=== PATIENT | male | born 1935 | race Caucasian/White ===

== ENCOUNTER 2016-10-31 03:15 | Emergency (ER) | payer OTHER, BC ==
[~2016-10-31] VITALS: Ht 177.8 cm; Wt 89.8 kg
[~2016-10-31 03:15] MED LIST: ACETAMINOPHEN-1 EAC1 PO; ACETAMINOPHEN325 M1 PO; ACTIGALL300 MG PO; ACTOS15 MG PO; AMBIEN5 MG PO; ASCORBIC ACID500 M3 PO; AVODART0.5 MG PO; BENADRYL25 MG PO; CARDIZEM CD,CA120 MG PO; CELECOXIB200 MG PO; CLEOCIN150 MG PO; COZAAR100 MG PO; COZAAR25 MG PO; CYANOCOBALAM1000 MCG PO; DIAMOX250 MG PO; DILTIAZEM 24HR120 MG PO; DORZOLAMIDE-TIM10 ML LEFT EYE; DUTASTERIDE0.5 MG PO; FISH OIL 1,0001 EAC7 PO; FLOMAX0.4 MG PO; FOLIC ACID1 MG PO; GABAPENTIN100 MG PO; GLUCOPHAGE500 MG PO; GLUCOSAMINE S1000 M3 PO; GLUCOSAMINE1000 MG PO; GLYBURIDE1.25 MG PO; HUMALOG100 UNIT/2 SC; HYDROCHLOROTHIA25 MG PO; IRON160 M1 PO; IRON18 MG PO; ISOPTO ATROPINE15 ML LEFT EYE; JANUVIA25 M1 PO; LACTULOSE10 GM/151 PO; LASIX40 MG PO; LEVEMIR FL100 UNIT/1 SC; LEVEMIR100 UNIT/2 SC; LEVO-T137 MCG PO; LEVOTHYROXINE175 MCG PO; LEVOXYL200 MCG PO; LOPRESSOR100 M1 PO; LOPRESSOR50 MG PO; LORAZEPAM0.5 MG PO; LUMIGAN 0.50 DROP/22 BOTH EYES; LUMIGAN 0.50 DROP/22 LEFT EYE; MACROBID100 MG PO; METAMUCIL PACKE1 PKT PO; METOPROLOL SUC100 MG PO; MIRALAX17 GM PO; MIRALAX255 GM PO; NEURONTIN100 MG PO; NITROSTAT0.4 MG SL; NOVOLOG PE100 UNITS/ SC; OMEGA III EPA1000 MG PO; OMEPRAZOLE20 M2 PO; OMEPRAZOLE20 MG PO; OMEPRAZOLE40 M1 PO; PHENAZOPYRIDIN200 MG PO; PRAVACHOL80 MG PO; PRAVASTATIN SOD80 MG PO; PROSCAR5 MG PO; SENNA-TIME S T1 EACH PO; ST. JOSEPH ASPI81 MG PO; SULFASALAZINE500 MG PO; SYNTHROID100 MCG PO; TAMSULOSIN HCL0.4 MG PO; TAZTIA XT120 M1 PO; THERAGRAN1 TABLET PO; TOPROL XL25 MG PO; TOUJEO SOL300 UNIT/1 SC; TRAMADOL HCL50 MG PO; TYLENOL ARTHRI650 MG PO; TYLENOL EXTRA500 MG PO; TYLENOL REGULA325 MG PO; ULTRAM50 MG PO; URSODIOL300 MG PO; VITAMIN D31000 UNIT PO; XARELTO20 MG PO; ZOLPIDEM TARTRAT5 MG PO
[2016-10-31 04:28] LABS: EOSINOPHIL (%) 2.5 % (0-5); EOSINOPHIL COUNT 0.2 K/uL (0-0.3); HEMATOCRIT 37.9 % (38.0-50.0); IMMATURE GRANULOCYTE (%) 1.1 % (0.0-0.7); IMMATURE GRANULOCYTE COUNT 0.1 K/uL; INSTRUMENT ABS NEUTROPHIL CT 6.9 K/uL; MCH 29.7 PG (29.0-34.0); MCV 87.1 FL (86-99); MEAN PLAT.VOLUME 10.1 uM^3 (9.0-12.4); MONOCYTE (%) 7.6 % (3-12); MONOCYTE COUNT 0.7 K/uL (0-0.8); NEUTROPHIL (%) 77.5 % (45-76); NEUTROPHIL COUNT 6.9 K/uL (1.8-6.4); PLATELET COUNT 139 K/uL (156-360); RBC DIS.WIDTH-CV 12.7 % (11.8-14.6); RBC DIS.WIDTH-SD 40.4 % (39-53); RED BLOOD COUNT 4.35 M/uL (4.00-5.50); WHITE BLOOD COUNT 8.9 K/uL (4.1-10.2)
[2016-10-31 04:44] LABS: CHLORIDE 102 mEq/L (99-109); POTASSIUM 3.5 mEq/L (3.7-5.4); SODIUM 139 mEq/L (136-147)
[2016-10-31 04:46] LABS: GLUCOSE 140 mg/dL (70-99)
[2016-10-31 04:47] LABS: ANION GAP 10 MEQ/L (2-14)
[2016-10-31 04:49] LABS: GFR ESTIMATE (CALCULATED) 52 mL/min/
[2016-10-31 04:50] LABS: UREA NITROGEN (BUN) 31 mg/dL (9-23)
[2016-10-31 04:51] LABS: ADD MIUA? NO; BILIRUBIN NEGATIVE; BLOOD NEGATIVE; COLOR STRAW ((YELLOW)); GLUCOSE (STRIP) NEGATIVE; KETONES NEGATIVE; LEUKOCYTES NEGATIVE; NITRITE NEGATIVE; PROTEIN (STRIP) NEGATIVE; SPECIFIC GRAVITY 1.008 (1.000-1.030); UCUL ADDED? NO; UROBILINOGEN 0.2 MG/DL (0.2-1.0)
[2016-10-31 04:54] LABS: TROP-I INTERPRETATION NEGATIVE; TROPONIN-I < 0.01 ng/mL (0.0-0.30)
[2016-10-31 04:56] LABS: INTER. NORMALIZED RATIO 1.2; PROTHROMBIN TIME 12.2 (9.2-11.2); PTT 27.1 (25-32)
[2016-10-31 05:19] VITALS: BP 103/64
[2016-10-31 05:34] LABS: HDL CHOLESTEROL 47 MG/DL (Desirable>=40); LDL CHOLESTEROL 103 mg/dL (Desirable<100); NON-HDL CHOLESTEROL 120 mg/dL (Desirable<160); TOTAL CHOLESTEROL 167 mg/dL (Desirable<200); TRIGLYCERIDES 85 MG/DL (Normal: <150)
[2016-10-31 06:42] LABS: Estimated Average Glucose 206 mg/dL (70-123); HEMOGLOBIN A1c (GLYCOHEMOGLOB) 8.8 % HGB (Below 5.7)
== END 2016-10-31 06:24 | disposition home or self-care (01) ==
LOC: EME → EDBD 03:15 → EME 06:24
PROVIDERS: Emergency Medicine
DX: T14.8 Other injury of unspecified body region (principal); N28.9 Disorder of kidney and ureter, unspecified; M54.2 Cervicalgia; W19.XXXA Unspecified fall, initial encounter; E11.9 Type 2 diabetes mellitus without complications; I10 Essential (primary) hypertension; K21.9 Gastro-esophageal reflux disease without esophagitis; I25.10 Atherosclerotic heart disease of native coronary artery without angina pectoris; Z95.1 Presence of aortocoronary bypass graft; G89.29 Other chronic pain; I73.9 Peripheral vascular disease, unspecified; Z79.84 Long term (current) use of oral hypoglycemic drugs; Z79.4 Long term (current) use of insulin; Z87.891 Personal history of nicotine dependence
CPT/HCPCS: 70450; 71010; 72125; 80048; 80061; 81003; 83036; 84484; 85025; 85610; 85730; 93005; 99281; 99284

== ENCOUNTER 2016-11-05 01:27 | Emergency (ER) | payer OTHER, BC ==
[~2016-11-05] VITALS: Ht 180.3 cm; Wt 94.5 kg
[2016-11-05 02:18] LABS: HEMATOCRIT 34.1 % (38.0-50.0); MCH 29.9 PG (29.0-34.0); MCHC 34.6 G/DL (30.0-36.0); MCV 86.5 FL (86-99); MEAN PLAT.VOLUME 10.8 uM^3 (9.0-12.4); PLATELET COUNT 153 K/uL (156-360); RBC DIS.WIDTH-CV 12.5 % (11.8-14.6); RBC DIS.WIDTH-SD 39.7 % (39-53); RED BLOOD COUNT 3.94 M/uL (4.00-5.50); WHITE BLOOD COUNT 5.7 K/uL (4.1-10.2)
[2016-11-05 02:27] LABS: CHLORIDE 103 mEq/L (99-109); POTASSIUM 4.2 mEq/L (3.7-5.4); SODIUM 136 mEq/L (136-147)
[2016-11-05 02:29] LABS: GLUCOSE 314 mg/dL (70-99)
[2016-11-05 02:31] LABS: ANION GAP 9 MEQ/L (2-14)
[2016-11-05 02:33] LABS: GFR ESTIMATE (CALCULATED) > 59 mL/min/
[2016-11-05 02:34] LABS: TROP-I INTERPRETATION NEGATIVE; TROPONIN-I < 0.01 ng/mL (0.0-0.30); UREA NITROGEN (BUN) 22 mg/dL (9-23)
[2016-11-05] MEDS ORDERED: NAPROSYN500 MG PO (03:42)
[2016-11-05 05:16] VITALS: BP 121/73
== END 2016-11-05 05:17 | disposition home or self-care (01) ==
LOC: EME → EDBD 01:27 → EME 01:27
PROVIDERS: Emergency Medicine
DX: M54.2 Cervicalgia (principal); M79.601 Pain in right arm; M25.511 Pain in right shoulder; G89.29 Other chronic pain; I10 Essential (primary) hypertension; K21.9 Gastro-esophageal reflux disease without esophagitis; I73.9 Peripheral vascular disease, unspecified; I25.10 Atherosclerotic heart disease of native coronary artery without angina pectoris; Z95.1 Presence of aortocoronary bypass graft; Z79.4 Long term (current) use of insulin; Z79.01 Long term (current) use of anticoagulants; Z87.891 Personal history of nicotine dependence; E11.65 Type 2 diabetes mellitus with hyperglycemia
CPT/HCPCS: 73030; 80048; 84484; 85027; 93005; 99281; 99284

== ENCOUNTER 2016-11-27 12:07 | Emergency (ER) | payer OTHER, BC ==
[~2016-11-27] VITALS: Ht 175.3 cm; Wt 90.8 kg
[~2016-11-27 12:07] MED LIST changes: +NAPROSYN500 MG PO
[2016-11-27 14:25] LABS: EOSINOPHIL (%) 0.9 % (0-5); EOSINOPHIL COUNT 0.1 K/uL (0-0.3); HEMATOCRIT 37.6 % (38.0-50.0); IMMATURE GRANULOCYTE (%) 0.5 % (0.0-0.7); IMMATURE GRANULOCYTE COUNT 0.1 K/uL; INSTRUMENT ABS NEUTROPHIL CT 11.4 K/uL; LYMPHOCYTE COUNT 0.6 K/uL (1.0-2.8); MCH 30.3 PG (29.0-34.0); MCHC 34.6 G/DL (30.0-36.0); MCV 87.6 FL (86-99); MEAN PLAT.VOLUME 9.8 uM^3 (9.0-12.4); MONOCYTE (%) 5.6 % (3-12); MONOCYTE COUNT 0.7 K/uL (0-0.8); NEUTROPHIL (%) 88.3 % (45-76); NEUTROPHIL COUNT 11.4 K/uL (1.8-6.4); PLATELET COUNT 152 K/uL (156-360); RBC DIS.WIDTH-CV 13.2 % (11.8-14.6); RBC DIS.WIDTH-SD 42.5 % (39-53); RED BLOOD COUNT 4.29 M/uL (4.00-5.50)
[2016-11-27 14:26] LABS: WHITE BLOOD COUNT 12.9 K/uL (4.1-10.2)
[2016-11-27 14:33] LABS: CHLORIDE 101 mEq/L (99-109); POTASSIUM 3.9 mEq/L (3.7-5.4); SODIUM 139 mEq/L (136-147)
[2016-11-27 14:35] LABS: GLUCOSE 236 mg/dL (70-99)
[2016-11-27 14:36] LABS: ANION GAP 9 MEQ/L (2-14)
[2016-11-27 14:37] LABS: TOTAL BILIRUBIN 0.7 mg/dL (0.0-1.0)
[2016-11-27 14:38] LABS: ALKALINE PHOSPHATASE 74 IU/L (3-129)
[2016-11-27 14:39] LABS: GFR ESTIMATE (CALCULATED) > 59 mL/min/
[2016-11-27 14:40] LABS: UREA NITROGEN (BUN) 19 mg/dL (9-23)
[2016-11-27 14:42] LABS: LIPASE 40 U/L (1.0-51.0)
[2016-11-27] MEDS ORDERED: CIPRO500 MG PO (16:47)
[2016-11-27] MEDS ORDERED: FLAGYL500 MG PO (16:47)
[2016-11-27 17:35] VITALS: BP 133/108
== END 2016-11-27 17:45 | disposition home or self-care (01) ==
LOC: EME 12:07
PROVIDERS: Emergency Medicine
DX: K52.9 Noninfective gastroenteritis and colitis, unspecified (principal); K92.1 Melena; I10 Essential (primary) hypertension; I48.91 Unspecified atrial fibrillation; I25.10 Atherosclerotic heart disease of native coronary artery without angina pectoris; E11.9 Type 2 diabetes mellitus without complications; K21.9 Gastro-esophageal reflux disease without esophagitis; Z95.1 Presence of aortocoronary bypass graft; Z79.4 Long term (current) use of insulin; Z79.01 Long term (current) use of anticoagulants; Z87.891 Personal history of nicotine dependence
CPT/HCPCS: 74177; 80053; 83690; 85025; 99281; 99285; J7030

== ENCOUNTER 2017-02-27 16:46 | Emergency (ER) | payer OTHER, BC ==
[~2017-02-27] VITALS: Ht 175.3 cm; Wt 90.2 kg
[~2017-02-27 16:46] MED LIST changes: +CIPRO500 MG PO; +FLAGYL500 MG PO
[2017-02-27 18:01] LABS: ADD MIUA? NO; BILIRUBIN NEGATIVE; BLOOD NEGATIVE; COLOR STRAW ((YELLOW)); GLUCOSE (STRIP) NEGATIVE; KETONES NEGATIVE; LEUKOCYTES NEGATIVE; NITRITE NEGATIVE; PROTEIN (STRIP) NEGATIVE; SPECIFIC GRAVITY 1.006 (1.000-1.030); UCUL ADDED? NO; UROBILINOGEN 0.2 MG/DL (0.2-1.0)
[2017-02-27] MEDS ORDERED: LOTRIMIN AF24 GM TP (18:42)
[2017-02-27 18:57] VITALS: BP 128/70
== END 2017-02-27 18:59 | disposition home or self-care (01) ==
LOC: EME 16:46
PROVIDERS: Physician Assistant Medical
DX: B37.49 Other urogenital candidiasis (principal); K21.9 Gastro-esophageal reflux disease without esophagitis; E11.9 Type 2 diabetes mellitus without complications; I10 Essential (primary) hypertension; I73.9 Peripheral vascular disease, unspecified; I25.10 Atherosclerotic heart disease of native coronary artery without angina pectoris; Z95.1 Presence of aortocoronary bypass graft; Z79.4 Long term (current) use of insulin; Z87.891 Personal history of nicotine dependence
CPT/HCPCS: 81003; 99281; 99284

== ENCOUNTER 2017-04-15 10:22 | Emergency (ER) | payer OTHER, BC ==
[~2017-04-15] VITALS: Ht 177.8 cm; Wt 85.9 kg
[~2017-04-15 10:22] MED LIST changes: +LOTRIMIN AF24 GM TP
[2017-04-15 11:20] LABS: HEMATOCRIT 32.8 % (38.0-50.0); MCHC 34.8 G/DL (30.0-36.0); MCV 86.3 FL (86-99); MEAN PLAT.VOLUME 10.2 uM^3 (9.0-12.4); PLATELET COUNT 136 K/uL (156-360); RBC DIS.WIDTH-SD 40.6 % (39-53); WHITE BLOOD COUNT 12.7 K/uL (4.1-10.2)
[2017-04-15 11:31] LABS: CHLORIDE 102 mEq/L (99-109); POTASSIUM 3.9 mEq/L (3.7-5.4); SODIUM 137 mEq/L (136-147)
[2017-04-15 11:33] LABS: GLUCOSE 357 mg/dL (70-99)
[2017-04-15 11:34] LABS: ANION GAP 14 MEQ/L (2-14)
[2017-04-15 11:36] LABS: GFR ESTIMATE (CALCULATED) 48 mL/min/
[2017-04-15 11:37] LABS: UREA NITROGEN (BUN) 29 mg/dL (9-23)
[2017-04-15 11:41] LABS: TROP-I INTERPRETATION NEGATIVE; TROPONIN-I < 0.01 ng/mL (0.0-0.30)
[2017-04-15 12:13] LABS: ADD MIUA? NO; BILIRUBIN NEGATIVE; BLOOD NEGATIVE; COLOR YELLOW ((YELLOW)); GLUCOSE (STRIP) >=500; KETONES NEGATIVE; LEUKOCYTES NEGATIVE; NITRITE NEGATIVE; PROTEIN (STRIP) 30; SPECIFIC GRAVITY 1.018 (1.000-1.030); UCUL ADDED? NO; UROBILINOGEN 0.2 MG/DL (0.2-1.0)
[2017-04-15 12:50] VITALS: BP 119/62
[2017-04-15 12:51] LABS: POINT-OF-CARE METER ID UU13113747
== END 2017-04-15 13:06 | disposition home or self-care (01) ==
LOC: EME 10:22
PROVIDERS: Emergency Medicine
DX: R53.1 Weakness (principal); W18.2XXA Fall in (into) shower or empty bathtub, initial encounter; Y93.E1 Activity, personal bathing and showering; I10 Essential (primary) hypertension; I48.91 Unspecified atrial fibrillation; Z79.01 Long term (current) use of anticoagulants; E11.9 Type 2 diabetes mellitus without complications; Z79.4 Long term (current) use of insulin; F41.9 Anxiety disorder, unspecified; K21.9 Gastro-esophageal reflux disease without esophagitis; I25.10 Atherosclerotic heart disease of native coronary artery without angina pectoris; Z95.1 Presence of aortocoronary bypass graft; Z96.652 Presence of left artificial knee joint; Z87.891 Personal history of nicotine dependence
CPT/HCPCS: 70450; 71020; 80048; 81003; 82948; 84484; 85027; 93005; 99281; 99284; J7030

== ENCOUNTER 2017-11-11 19:46 | Emergency (ER) | payer OTHER, BC ==
[~2017-11-11] VITALS: Ht 175.3 cm; Wt 88.4 kg
[2017-11-11 21:31] LABS: HEMATOCRIT 38.1 % (38.0-50.0); HEMOGLOBIN 13.5 G/DL (12.5-16.6); MCH 30.9 PG (29.0-34.0); MCHC 35.4 G/DL (30.0-36.0); MCV 87.2 FL (86-99); PLATELET COUNT 158 K/uL (156-360); RBC DIS.WIDTH-CV 13.2 % (11.8-14.6); RBC DIS.WIDTH-SD 42.1 % (39-53); RED BLOOD COUNT 4.37 M/uL (4.00-5.50)
[2017-11-11 21:41] LABS: ALBUMIN 4.4 g/dL (3.2-4.8)
[2017-11-11 21:42] LABS: CHLORIDE 104 mEq/L (99-109); POTASSIUM 3.9 mEq/L (3.7-5.4); SODIUM 138 mEq/L (136-147)
[2017-11-11 21:44] LABS: GLUCOSE 178 mg/dL (70-99); TOTAL PROTEIN 7.3 g/dL (6.4-8.3)
[2017-11-11 21:46] LABS: TOTAL BILIRUBIN 0.8 mg/dL (0.0-1.0)
[2017-11-11 21:47] LABS: ALKALINE PHOSPHATASE 72 IU/L (3-129)
[2017-11-11 21:48] LABS: GFR ESTIMATE (CALCULATED) > 59 mL/min/ (58.99-99999)
[2017-11-11 21:49] LABS: AST (GOT) 17 IU/L (2-34); UREA NITROGEN (BUN) 21 mg/dL (9-23)
[2017-11-11 21:50] LABS: ALT (GPT) 16 IU/L (3-49)
[2017-11-11 21:51] LABS: LIPASE 12 U/L (1.0-51.0)
[2017-11-11 22:00] LABS: C DIFF TOXIN NEGATIVE (NEGATIVE)
[2017-11-11 23:37] LABS: APPEARANCE CLEAR ((CLEAR)); BILIRUBIN NEGATIVE; BLOOD NEGATIVE; COLOR YELLOW ((YELLOW)); GLUCOSE (STRIP) 50; KETONES NEGATIVE; LEUKOCYTES NEGATIVE; NITRITE NEGATIVE; PROTEIN (STRIP) 100; SPECIFIC GRAVITY 1.017 (1.000-1.030); UROBILINOGEN 0.2 MG/DL (0.2-1.0)
[2017-11-11 23:42] LABS: BACTERIA NONE SEEN /HPF; EPITHELIAL CELLS RARE /HPF; MUCUS TRACE /LPF; RED BLOOD CELLS 0-5 /HPF (0-5); UCUL ADDED? NO; WHITE BLOOD CELLS 0-5 /HPF (0-5)
[2017-11-12 01:20] VITALS: BP 130/85
[2017-11-12] MEDS ORDERED: CIPRO500 MG PO (12:25)
[2017-11-12] MEDS ORDERED: PRILOSEC20 MG PO (12:29)
== END 2017-11-12 01:21 | disposition home or self-care (01) ==
LOC: EME 19:46
PROVIDERS: Physician Assistant
DX: K52.9 Noninfective gastroenteritis and colitis, unspecified (principal); K86.9 Disease of pancreas, unspecified; E11.9 Type 2 diabetes mellitus without complications; Z79.4 Long term (current) use of insulin; I10 Essential (primary) hypertension; I48.2 Chronic atrial fibrillation; K21.9 Gastro-esophageal reflux disease without esophagitis; F41.9 Anxiety disorder, unspecified; I25.10 Atherosclerotic heart disease of native coronary artery without angina pectoris; Z95.1 Presence of aortocoronary bypass graft; N40.0 Benign prostatic hyperplasia without lower urinary tract symptoms; Z87.891 Personal history of nicotine dependence
CPT/HCPCS: 74177; 80053; 81003; 82948; 83630; 83690; 85027; 87177; 87493; 87506; 99281; 99285; J2405; J7030; J7040

== ENCOUNTER 2017-11-12 10:15 | Emergency (ER) | payer OTHER, BC ==
[~2017-11-12] VITALS: Ht 172.7 cm; Wt 87.6 kg
[2017-11-12 11:10] LABS: HEMATOCRIT 37.6 % (38.0-50.0); HEMOGLOBIN 13.2 G/DL (12.5-16.6); MCH 30.8 PG (29.0-34.0); MCHC 35.1 G/DL (30.0-36.0); MCV 87.9 FL (86-99); PLATELET COUNT 152 K/uL (156-360); RBC DIS.WIDTH-CV 13.5 % (11.8-14.6); RBC DIS.WIDTH-SD 43.5 % (39-53); RED BLOOD COUNT 4.28 M/uL (4.00-5.50); WHITE BLOOD COUNT 8.7 K/uL (4.1-10.2)
[2017-11-12 11:48] LABS: TROP-I INTERPRETATION NEGATIVE; TROPONIN-I < 0.01 ng/mL (0.0-0.30)
[2017-11-12 11:57] LABS: ALKALINE PHOSPHATASE 58 IU/L (3-129); ALT (GPT) 12 IU/L (3-49); AST (GOT) 16 IU/L (2-34); CHLORIDE 105 MEQ/L (99-109); CREATININE 0.9 MG/DL (0.6-1.3); GFR ESTIMATE (CALCULATED) > 59 mL/min/ (58.99-99999); GLUCOSE 123 mg/dL (70-99); POTASSIUM 3.8 MEQ/L (3.7-5.4); SODIUM 138 MEQ/L (136-147); TOTAL BILIRUBIN 0.7 MG/DL (0.0-1.0); UREA NITROGEN (BUN) 16 mg/dL (9-23)
[2017-11-12] MEDS ORDERED: CIPRO500 MG PO (12:25)
[2017-11-12] MEDS ORDERED: PRILOSEC20 MG PO (12:29)
[2017-11-12 12:38] VITALS: BP 129/99
== END 2017-11-12 12:55 | disposition home or self-care (01) ==
LOC: EME → EDBD 10:15 → EME 12:55
PROVIDERS: Emergency Medicine Emergency Medical Services
DX: K29.70 Gastritis, unspecified, without bleeding (principal); R19.7 Diarrhea, unspecified; I45.10 Unspecified right bundle-branch block; I48.92 Unspecified atrial flutter; I09.89 Other specified rheumatic heart diseases; I10 Essential (primary) hypertension; E11.51 Type 2 diabetes mellitus with diabetic peripheral angiopathy without gangrene; Z79.4 Long term (current) use of insulin; Z79.84 Long term (current) use of oral hypoglycemic drugs; I25.10 Atherosclerotic heart disease of native coronary artery without angina pectoris; M19.91 Primary osteoarthritis, unspecified site; N40.0 Benign prostatic hyperplasia without lower urinary tract symptoms; F41.9 Anxiety disorder, unspecified; Z79.01 Long term (current) use of anticoagulants; Z87.891 Personal history of nicotine dependence; Z85.9 Personal history of malignant neoplasm, unspecified; Z95.1 Presence of aortocoronary bypass graft; Z87.19 Personal history of other diseases of the digestive system; Z86.69 Personal history of other diseases of the nervous system and sense organs
CPT/HCPCS: 70450; 71045; 80053; 83880; 84484; 85027; 93005; 99281; 99284; J0780; J7040

== ENCOUNTER 2018-02-17 06:31 | Emergency (ER) | payer OTHER, BC ==
[~2018-02-17] VITALS: Ht 177.8 cm; Wt 89.4 kg
[~2018-02-17 06:31] MED LIST changes: +PRILOSEC20 MG PO
[2018-02-17 07:31] LABS: APPEARANCE CLEAR ((CLEAR)); BILIRUBIN NEGATIVE; BLOOD NEGATIVE; COLOR STRAW ((YELLOW)); GLUCOSE (STRIP) 50; KETONES NEGATIVE; LEUKOCYTES NEGATIVE; NITRITE NEGATIVE; PROTEIN (STRIP) 30; SPECIFIC GRAVITY 1.006 (1.000-1.030); UCUL ADDED? NO; UROBILINOGEN 0.2 MG/DL (0.2-1.0)
[2018-02-17 07:43] LABS: BASOPHIL (%) 0.4 % (0-1); EOSINOPHIL (%) 1.6 % (0-5); EOSINOPHIL COUNT 0.1 K/uL (0-0.3); HEMATOCRIT 35.5 % (38.0-50.0); HEMOGLOBIN 12.3 G/DL (12.5-16.6); IMMATURE GRANULOCYTE (%) 0.5 % (0.0-0.7); LYMPHOCYTE (%) 19.8 % (15-42); LYMPHOCYTE COUNT 1.1 K/uL (1.0-2.8); MCH 30.2 PG (29.0-34.0); MCHC 34.6 G/DL (30.0-36.0); MCV 87.2 FL (86-99); MONOCYTE (%) 11.4 % (3-12); MONOCYTE COUNT 0.6 K/uL (0-0.8); NEUTROPHIL (%) 66.3 % (45-76); NEUTROPHIL COUNT 3.7 K/uL (1.8-6.4); PLATELET COUNT 138 K/uL (156-360); RBC DIS.WIDTH-CV 12.7 % (11.8-14.6); RBC DIS.WIDTH-SD 40.4 % (39-53); RED BLOOD COUNT 4.07 M/uL (4.00-5.50); WHITE BLOOD COUNT 5.6 K/uL (4.1-10.2)
[2018-02-17 08:11] LABS: ALBUMIN 4.4 G/DL (3.2-4.8); CHLORIDE 101 MEQ/L (99-109); SODIUM 134 MEQ/L (136-147); TOTAL BILIRUBIN 1.1 MG/DL (0.0-1.0)
[2018-02-17 08:16] LABS: ALKALINE PHOSPHATASE 59 IU/L (3-129); ALT (GPT) 8 IU/L (3-49); AST (GOT) 13 IU/L (2-34); GFR ESTIMATE (CALCULATED) > 59 mL/min/ (58.99-99999); GLUCOSE 229 mg/dL (70-99); UREA NITROGEN (BUN) 20 mg/dL (9-23)
[2018-02-17 09:55] LABS: LIPASE 19 U/L (1.0-51.0)
[2018-02-17] MEDS ORDERED: COLACE100 MG PO (11:42)
[2018-02-17 12:29] VITALS: BP 137/86
== END 2018-02-17 12:44 | disposition home or self-care (01) ==
LOC: EME 06:31
PROVIDERS: Nurse Practitioner Family
DX: K59.00 Constipation, unspecified (principal); R30.0 Dysuria; E11.65 Type 2 diabetes mellitus with hyperglycemia; K86.9 Disease of pancreas, unspecified; N28.1 Cyst of kidney, acquired; I10 Essential (primary) hypertension; K21.9 Gastro-esophageal reflux disease without esophagitis; N40.1 Benign prostatic hyperplasia with lower urinary tract symptoms; I25.10 Atherosclerotic heart disease of native coronary artery without angina pectoris; M19.90 Unspecified osteoarthritis, unspecified site; F41.9 Anxiety disorder, unspecified; Z79.01 Long term (current) use of anticoagulants; Z79.4 Long term (current) use of insulin; Z87.891 Personal history of nicotine dependence; Z95.1 Presence of aortocoronary bypass graft; Z87.440 Personal history of urinary (tract) infections; Z86.79 Personal history of other diseases of the circulatory system; Z86.69 Personal history of other diseases of the nervous system and sense organs; Z85.9 Personal history of malignant neoplasm, unspecified; Z98.890 Other specified postprocedural states
CPT/HCPCS: 71046; 74177; 80053; 81003; 83605; 83690; 85025; 87040; 99281; 99285; J7030